=== PATIENT | female | born 2000 | race Caucasian/White ===

== ENCOUNTER 2022-05-15 08:48 | Emergency (ER) | payer OTHER ==
[~2022-05-15] VITALS: Ht 172.7 cm; Wt 123.3 kg
[2022-05-15] MEDS ORDERED: NITROFURANTOIN (MACROBID) 100 MG CAP PO ONE (13:15)
[2022-05-15 13:21] LABS: URINE PREG TEST NEGATIVE (NEGATIVE)
[2022-05-15] MEDS ORDERED: MACR100C43 PO (13:28)
[2022-05-15] MEDS ORDERED: PYRI1TAB5 PO (13:28)
[2022-05-15 13:43] VITALS: BP 118/65
== END 2022-05-15 13:49 | disposition home or self-care (01) ==
LOC: M ED 08:48
DX: N30.00 Acute cystitis without hematuria (principal)

== ENCOUNTER → 2022-12-04 | Outpatient (REF) | payer OTHER ==
[~2022-12-04] MED LIST: LEVS0.124 SL; MACR100C43 PO; ONDA4TAB6; PYRI1TAB5 PO
== END ==
LOC: M WUC 17:09
PROVIDERS: ATTEND Student in an Organized Health Care Education/Training Program
DX: R11.0 Nausea (principal)

== ENCOUNTER → 2022-12-06 | Outpatient (CLI) | payer OTHER ==
[2022-12-06 18:18] LABS: HEMATOCRIT 42.7 % (36.0-47.0); HEMOGLOBIN 13.4 g/dl (12.0-15.5); MEAN CORPUSCULAR HEMOGLOBIN 27.2 pg (27.0-33.0); MEAN CORPUSCULAR HGB CONC 31.4 g/dl (32.0-36.5); MEAN CORPUSCULAR VOLUME 86.6 fl (80.0-96.0); PLATELET COUNT, AUTOMATED 143 10^3/uL (150-450); RED BLOOD COUNT 4.93 10^6/uL (4.00-5.40); WHITE BLOOD COUNT 7.5 10^3/uL (4.0-10.0)
[2022-12-06 18:47] LABS: LIPASE 45 U/L (12-53)
[2022-12-06 18:49] LABS: ALBUMIN 3.8 G/DL (3.2-5.2); ALKALINE PHOSPHATASE 337 U/L (46-116); ALT/SGPT 316 U/L (7.0-40); AST/SGOT 200 U/L (<34); BILIRUBIN,TOTAL 2.6 MG/DL (0.3-1.2); BLOOD UREA NITROGEN 10 MG/DL (9-23); CALCIUM LEVEL 8.7 MG/DL (8.5-10.1); CARBON DIOXIDE LEVEL 28 MMOL/L (20-31); CHLORIDE LEVEL 101 MMOL/L (98-107); CREATININE FOR GFR 0.56 MG/DL (0.55-1.30); GLOMERULAR FILTRATION RATE > 60.0 (>60); GLUCOSE, FASTING 98 MG/DL (60-100); POTASSIUM SERUM 4.2 MMOL/L (3.5-5.1); SODIUM LEVEL 136 MMOL/L (136-145); TOTAL PROTEIN 7.3 G/DL (5.7-8.2)
[2022-12-06 19:33] LABS: ATYPICAL LYMPH 22 % (0-5); BASOPHILS 1 % (0-1); LYMPHOCYTES 50 % (16-44); MONOCYTES 9 % (0-5); NEUTROPHILS 18 % (28-66)
[2022-12-06 19:34] LABS: PLATELET ESTIMATE DECREASED (NORMAL)
== END ==
LOC: M WUC 13:57
PROVIDERS: ATTEND Student in an Organized Health Care Education/Training Program
DX: R10.84 Generalized abdominal pain (principal)

== ENCOUNTER → 2023-03-18 | Outpatient (CLI) | payer OTHER | LOC: M RAD 08:06 | PROVIDERS: ATTEND Preventive Medicine Undersea and Hyperbaric Medicine | DX: R11.0 Nausea (principal); R94.5 Abnormal results of liver function studies | CPT/HCPCS: 78227; A9537 ==